=== PATIENT | female | born 1985 | race Caucasian/White ===

== ENCOUNTER 2017-01-18 11:04 | Inpatient (IN) ==
[2017-01-18 12:03] LABS: Basophils # 0.1 K/mcL (0.0-0.2); Basophils % 0.6 %; Eosinophils # 0.1 K/mcL (0.0-0.6); Eosinophils % 0.6 %; Hematocrit 38.9 % (35.3-44.9); Hemoglobin 13.6 g/dL (11.5-15.4); Immature Granulocytes % 0.5 % (0-4); Lymphocytes # 2.5 K/mcL (0.6-4.6); Lymphocytes % 23.5 %; Mean Corpuscular Volume 94.4 fL (83.0-100.0); Monocytes # 0.8 K/mcL (0.0-1.3); Monocytes % 7.2 %; Neutrophils # 7.2 K/mcL (1.6-8.9); Platelet Count 187 K/mcL (140-400); Red Blood Count 4.12 M/mcL (3.82-4.97); Segmented Neutrophils % 67.6 %
[2017-01-18] MEDS ORDERED: *HR* FentaNYL (PF) 100 MCG/2 ML VIAL IVP PRN (12:10)
[2017-01-18] MEDS ORDERED: Naloxone 0.4 MG/ML INJ IVP PRN (12:10)
[2017-01-18] MEDS ORDERED: Famotidine 20 MG/2 ML VIAL IVP PRN (12:10)
[2017-01-18] MEDS: miSOPROStol 25 MCG TABLET PO PRN ×2 (12:30→16:37)
--- NOTE | 2017-01-18 12:47 | OB/GYN History & Physical ---
Date of Encounter: 01/18/17 Time of Encounter: 12:45 Assessment and Plan (1) IUFD at 20 weeks or more of gestation Current visit: Yes Status: Acute Admit to labor and delivery Cytotec PO- Plan for vaginal delivery, however, if fetus remains transverse, will perform section as version will be unlikely given uterine fibroid and apparent oligo. Plan of care discussed with Dr. Tejada. (2) 30 weeks gestation of Current visit: Yes Status: Acute (3) Uterine fibroid in antepartum period Current visit: Yes Status: Acute History of Present Illness Chief complaint: IUFD HPI: Ms. To is a 31 year old female 30+2 presented to office for appointment with decreased movement for last week. IUFD confirmed by ultrasound in office with fetus measuring 26 weeks. Denies contractions or vaginal bleeding. complicated by 14cm uterine fibroid and second trimester bleed. Seen by MFM on 12/28 fetus measured appropriate for gestational age with stable fibroid. Labs: O+, Rubella immune, varicella positive, all other serologies negative. Past Med Surg Social Fam HX - Past Medical History Medical history: no medical history Psychiatric history: no psych history - Past Surgical History Surgical History: appendectomy - Social History Smoking Status: Unknown if ever smoked Alcohol use: none Drug use: none - Family History Mother Living Status: Still Living Hx Family Neuromuscular Disorders: Yes Obstetrical History - Pregnancies : 3 Para: 2 Term: 1 : 1 Ab's: 0 Livin Medications and Allergies Allergies loratadine [From Alavert] Allergy (Verified 01/18/17 11:55) Anaphylaxis Exam - Constitutional Constitutional: well developed, well nourished, no acute distress, average body habitus - Lungs Respiratory exam: CTAB - Cardiovascular Cardiovascular exam: RRR, +S1, +S2 - Abdomen Abdomen: Present: bowel sounds normal, gravid, non tender - Extremities Extremities exam: normal capillary refill, normal inspection - Cervix Dilation: 2 (per rola ) - Uterus Uterus exam: Present: normal size, normal contour Results Result Diagrams: 01/18/17 11:34 All other labs normal. - VTE Reasons for not Prescribing Prophylaxis: Treatment not Indicated - Low risk for VTE
[2017-01-18 15:13] VITALS: BP 114/74
[2017-01-18] MEDS ORDERED: *HR* Nalbuphine 20 MG/ML AMPUL ONE (17:11)
[2017-01-18] MEDS ORDERED: Ringers Solution, Lactated 1,000 ML ONE ×4 (17:17→23:59)
[2017-01-18] MEDS ORDERED: *HR* Nalbuphine 20 MG/ML AMPUL IVP PRN (17:35)
[2017-01-18] MEDS ORDERED: *HR* FentaNYL (PF) 100 MCG/2 ML VIAL ONE (17:45)
[2017-01-18] MEDS ORDERED: Bupivacaine-MPF 0.25% 10 ML VIAL ONE (17:45)
[2017-01-18] MEDS ORDERED: Epidural Premix (fent/bupiv) 110 ML EP ONE (17:46)
--- NOTE | 2017-01-18 18:24 | Anesthesia Evaluation PreOp ---
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: Denies Any Significant HX Other Medical History: Denies Any Significant HX Anesthesia History: No Prior Anesthetic Complications (ANA x 2-no complications ; denies personal or family h/o anesthesia complications) : Yes Test: Positive Alcohol Use: none Drug use: none Medications and Allergies Allergies loratadine [From Alavert] Allergy (Verified 01/18/17 11:55) Anaphylaxis - Meds/Allergy Pre-op Review Medications Reviewed: Yes Allergies Reviewed: Yes Beta Blockers on Current Med List: No Anesthesia Results - Labs 01/18/17 11:34 Anesthesia Exam 113/77, HR 71, 99% O2 Sat Height 1.75 m Weight 75 kg Vital Signs Temp Pulse Resp BP 97.8 F 74 14 118/80 01/18/17 12:00 01/18/17 12:00 01/18/17 12:00 01/18/17 12:00 NPO (# of Hours): solids > 8hr Pain Scale: 3 Pain Scale Used: Numeric (1 - 10) - HEENT Pupil (Motor): Pupils equal Mallampati: II Teeth: Normal Oral Opening: Greater than 3 - 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
[2017-01-18] MEDS ORDERED: Bupivacaine-MPF 0.25% 10 ML VIAL EP ONE (18:27)
[2017-01-18] MEDS ORDERED: *HR* FentaNYL (PF) 100 MCG/2 ML VIAL EP ONE (18:27)
--- NOTE | 2017-01-18 18:27 | Anesthesia Procedures ---
Date of Encounter: 01/18/17 Time of Encounter: 18:25 Procedures: Anesthesia - Epidural/Spinal Patient ID/Chart reviewed: Yes Patient examined: Yes OB Eval: Gestational age: 30 weeks 2 days OB Eval: : 3 OB Eval: Hx Para: 2 OB Eval: Contractions: Non-stressed pattern Consent Obtained: Yes Supplemental Oxygen: None/Room Air Site Prep: Aseptic Technique, Sterile prep and drape, Povidone-Iodine 1% Patient position: upright Local Anesthetic: Lidocaine 1% Amount of Local Anesthetic used: 3 Touhy Needle Gauge: 18 Touhy Needle Depth (cm): 5 Catheter Depth at Skin (cm): 11 Test Dose (1.5% Lido + Epi): Volume given (mls): 3 Test Dose Result: Negative Loading Dose: 0.25% Marcaine (mls): 5 Loading Dose: Fentanyl (mcg): 100 Loading Dose Administered: Thru Catheter Infusion Med: 0.125% Bupivacaine w/ 2 mcg/ml Fentanyl Catheter Secured in Place: Tegaderm, Tape Interspace Used: L4-L5 Loss of Resistance (XIMENA): Yes Blood: No CSF: No Paresthesia: No Vitals + FHT's: please see Jaimie JOHN's electronic documentation
[2017-01-18] MEDS ORDERED: Epidural Premix (fent/bupiv) 110 ML EP SCH (18:30)
--- NOTE | 2017-01-18 20:11 | OB Labor Progress Note ---
Date of Encounter: 01/18/17 Time of Encounter: 20:08 Labor Progress Note - Subjective Subjective: Pt now comfortable with epidural. Prior to epidural was starting to feel contractions eery 2-3 minutes - Cervix Cervix: 50/-3/ Presentaton not known. Arnett arm or leg presenting - Plan Plan: Discussed with Dr. Tejada. Will give 200mcg vaginal cytotec for next dose and will repeat q 4 hours. If fetus turns to breech or vertex will proceed with vaginal delivery. If at engagement still transverse will proceed with section. Pt in agreement with plan.
[2017-01-18] MEDS ORDERED: miSOPROStol 25 MCG TABLET VG SCH (20:30)
[2017-01-18] MEDS ORDERED: miSOPROStol 100 MCG TABLET VG SCH (20:45)
[2017-01-19] MEDS ORDERED: Epidural Premix (fent/bupiv) 110 ML EP ONE
[2017-01-19] MEDS ORDERED: Oxytocin 20 units/ LR 1000 mL 20 UNIT/1,000 ML BAG IVC ONE ×2 (01:35→05:05)
--- NOTE | 2017-01-19 02:56 | OB/GYN Procedure Note ---
Delivery - Delivery Date: 01/19/17 Provider: Mary Lee Intrapartum events: demise Delivery induction: misoprostol Delivery monitor: none Anesthesia: epidural Estimated Blood Loss: 300 - Infant (s) A Delivery Date: 01/19/17 Delivery Time: 00:50 Presentation: complete breech Route of delivery: Gender: Female Viability: Nonviable Placenta: spontaneous - Repair Episiotomy: none Laceration Description: None - Complications Delivery complications: none Delivery comments: induction for IUFD at 30 weeks. Pt felt pressure. Passive delivery of amniotic sac, then delivery of peggy breech fetus en caul delivered intact. non viable. Placenta delivered spontaneously intact. fundus massaged to firm EBL 300. Perineum intact. - Disposition Mom disposition: stable in LDR
--- NOTE | 2017-01-19 03:40 | Discharge Summary ---
Date of Encounter: 01/19/17 Time of Encounter: 03:41 - Discharge Diagnosis (1) IUFD at 20 weeks or more of gestation Priority: Primary Status: Acute (2) 30 weeks gestation of Priority: Secondary Status: Acute (3) Uterine fibroid in antepartum period Priority: Primary Status: Acute - Discharge Medications Prescriptions: Ibuprofen 800 mg PO Q8HR #60 tablet Docusate Sodium [Colace] 100 mg PO DAILY #60 capsule Home Medications: Docusate Sodium [Colace] 100 mg PO DAILY #60 capsule 01/19/17 [Rx] Ibuprofen 800 mg PO Q8HR #60 tablet 01/19/17 [Rx] Allergies/Adverse Reactions: Allergies loratadine [From Alavert] Allergy (Verified 01/18/17 11:55) Anaphylaxis Data Procedures and tests throughout hospitalization: Laboratory Tests 01/18/17 11:34 WBC 10.6 RBC 4.12 Hgb 13.6 Hct 38.9 MCV 94.4 MCH 33.0 MCHC 35.0 RDW 13.0 Plt Count 187 MPV 10.0 Immature Gran % 0.5 Seg Neutrophils % 67.6 Lymphocytes % 23.5 Monocytes % 7.2 Eosinophils % 0.6 Basophils % 0.6 Neutrophils # 7.2 Lymphocytes # 2.5 Monocytes # 0.8 Eosinophils # 0.1 Basophils # 0.1 Labs on day of discharge: Labs from last 24 hours 01/18/17 11:34 WBC 10.6 RBC 4.12 Hgb 13.6 Hct 38.9 MCV 94.4 MCH 33.0 MCHC 35.0 RDW 13.0 Plt Count 187 MPV 10.0 Immature Gran % 0.5 Seg Neutrophils % 67.6 Lymphocytes % 23.5 Monocytes % 7.2 Eosinophils % 0.6 Basophils % 0.6 Neutrophils # 7.2 Lymphocytes # 2.5 Monocytes # 0.8 Eosinophils # 0.1 Basophils # 0.1 Date of admission: 01/18/17 11:04 Primary care physician: PCP NO Consults: 01/18/17 12:10 Consult to Plaster Mechanic (W&C) [CONS] Stat Reason For Exam: Reason for SW Consult: IUFD 30 weeks Discharging clinician: Mary Lee Anticipated date of discharge: 01/19/17 - Patient Status Disposition: Home, Self-Care Condition: Good Functional capacity at discharge: independent ambulation - Discharge Instructions Follow Up With: NO,PCP [Primary Care Provider] - Tanna Trejo MD [Partnered Physician] - - Diet and Activity Activity: resume usual activities as tolerated Diet: regular diet 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 Pt felt pressure. Passive delivery of amniotic sac, then delivery of peggy breech fetus en caul delivered intact. non viable. Placenta delivered spontaneously intact. fundus massaged to firm EBL 300. Perineum intact. - Disposition Mom disposition: stable in recovery and appropriate for discharge Time Attestation: Total time spent providing and/or coordinating discharge services: Time Spent: Less than 30 minutes Exam - Constitutional Vitals: Temp Pulse Resp BP 98.4 F 84 14 114/74 01/18/17 15:12 01/18/17 15:12 01/18/17 15:12 01/18/17 15:12 General appearance IM: A&O X 3 - Respiratory Respiratory exam: Present: CTAB - Cardiovascular Cardiovascular exam IM: Present: RRR - GI/Abdominal GI/Abdominal exam IM: soft - Uterine Tone: Firm - Extremities Exam Extremities exam IM: Present: normal capillary refill, normal inspection - Neurological Exam Neurological exam: normal gait, oriented X3, reflexes normal - Psychiatric Additional comments: Appropriate for situation - VTE Reasons for not Prescribing Prophylaxis: Treatment not Indicated - Low risk for VTE
[2017-01-19] MEDS ORDERED: Sennosides 8.6 MG TABLET PO PRN (07:10)
[2017-01-19] MEDS ORDERED: Oxytocin 20 units/ LR 1000 mL 20 UNIT/1,000 ML BAG IVC SCH (07:10)
[2017-01-19] MEDS ORDERED: *HR* HYDROcodone/Acet 5/325 mg TABLET PO PRN (07:10)
[2017-01-19] MEDS ORDERED: Ibuprofen 600 MG TABLET PO PRN (07:10)
[2017-01-19] MEDS ORDERED: Acetaminophen 325 MG TABLET PO PRN (07:10)
[2017-01-19] MEDS ORDERED: Prenatal Vit/FA 1 EACH TABLET PO SCH (09:00)
== END 2017-01-19 06:30 | disposition home or self-care (01) | DRG 775 ==
LOC: 1NENULAB 11:04
PROVIDERS: ADMIT Obstetrics & Gynecology; ATTEND Obstetrics & Gynecology